=== PATIENT | female | born 1985 | race Two or more races ===

== ENCOUNTER 2025-02-28 13:44 | Emergency (ER) | payer MEDICAID, SELFPAY ==
[2025-02-28 13:59] VITALS: BP 125/82; PULSE 81; RESP 24; TEMP 36.9; O2SAT 99
--- NOTE | 2025-02-28 14:07 | XR_ITS ---
Examination: CT brain head without contrast. 2-D sagittal coronal reconstructions Date and time of exam:February 28, 2025 1557 hours INDICATIONS: Severe headache and dizziness today CTDI: vol (mGy):50 DLP: (mGycm):999 Technique: Multiple CT axial sections of the brain have been obtained, 5 mm slice thickness. Contrast has not been administered. 2-D sagittal, coronal reconstructions have been obtained Low dose protocols were performed. One or more of the following dose reduction techniques were used; automated exposure control, adjustment of the mA and/or KV according to patient size, use of iterative reconstruction technique. Findings: No significant ventricular enlargement. Intra-axial or extra-axial hemorrhage density is not seen. No mass effect or midline shift Basal cisterns are not remarkable. Fourth ventricle is midline. Cranial vault intact. Acute sphenoid sinusitis axial image 35 Impression: Negative for acute hemorrhage, mass effect or midline shift Advise clinical correlation follow-up accordingly
--- NOTE | 2025-02-28 14:07 | EKG_ITS ---
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
--- NOTE | 2025-02-28 14:07 | XR_ITS ---
Examination: AP chest single view TECHNIQUE: AP sitting portable chest single view Date and time: February 28, 2025 1421 hours INDICATIONS: Chest pain shortness of breath today. FINDINGS: Mild prominence of ventricle No pneumonia or pulmonary edema. The osseous structures are intact IMPRESSION: No active disease.
--- NOTE | 2025-02-28 14:08 | PD.EDRME ---
Rapid Medical Screening Exam E Arrival date/time: 02/28/25 13:44 39-year-old female presents emergency department for complaint of headache and, chest pain dizziness and weakness ongoing x 2 days Chief Complaint: Dizziness Vital signs: Vital Signs Temperature 98.4 F 02/28/25 13:59 Pulse Rate 81 02/28/25 13:59 Respiratory Rate 24 H 02/28/25 13:59 Blood Pressure 125/82 02/28/25 13:59 Pulse Oximetry (%) 99 02/28/25 13:59 Oxygen Delivery Method Room Air 02/28/25 13:59
[2025-02-28] MEDS: ACETAMINOPHEN 500 MG TABLET 1000 MG PO (14:14)
[2025-02-28 14:27] LABS: Basophils # (Auto) 0.1 Thou/mm3 (0.0-0.2); Basophils % (Auto) 1 % (0-2.5); Eosinophils # (Auto) 0.1 Thou/mm3 (0.0-0.5); Eosinophils % (Auto) 1 % (0-10); Hematocrit 35.6 % (36.0-46.0); Hemoglobin 11.0 g/dL (12.0-16.0); Immature Granulocytes Auto 0.02 Thou/mm3 (0.00-0.00); Lymphocytes # (Auto) 2.5 Thou/mm3 (1.0-4.8); Lymphocytes % (Auto) 29 % (10-50); Mean Corpuscular HGB Conc 30.9 g/dl (31.0-37.0); Mean Corpuscular Hemoglobin 21.5 pg (25.0-35.0); Mean Corpuscular Volume 70 fL (80-100); Monocytes # (Auto) 0.5 Thou/mm3 (0.0-0.8); Monocytes % (Auto) 6 % (0-12); Neutrophils # (Auto) 5.7 Thou/mm3 (1.8-7.7); Neutrophils % (Auto) 64 % (37-80); Nucleated Red Blood Cell # 0.00 Thou/mm3 (0.00-0.00); Nucleated Red Blood Cell % 0 /100 WBC (0); Platelet Count 308 Thou/mm3 (140-440); RDW Standard Deviation 50.0 fL (36.4-46.3); Red Blood Count 5.12 Miln/mm3 (4.00-5.20); White Blood Count 8.9 Thou/mm3 (3.6-11.0)
[2025-02-28 14:45] LABS: INR 1.0 (0.9-1.3); Partial Thromboplastin Time 25.2 Seconds (22.0-36.0); Prothrombin Time 11.1 Seconds (9.0-12.2)
[2025-02-28 14:46] LABS: B-Type Natriuretic Peptide < 20 pg/mL (0-100)
[2025-02-28 14:48] LABS: Alanine Aminotransferase 14 U/L (10-49); Albumin, Serum 4.3 gm/dL (3.5-5.0); Albumin/Globulin Ratio 1.7 (1.2-2.2); Alkaline Phosphatase 66 U/L (46-116); Anion Gap 12 (7-16); Aspartate Amino Transferase 20 U/L (0-34); BUN/Creatinine Ratio 30 Ratio (12-20); Bilirubin,Total 0.4 mg/dL (0.3-1.2); Blood Urea Nitrogen 15 mg/dL (9-23); Calcium 9.4 mg/dL (8.3-10.6); Calcium (Corrected) 9.4 mg/dL (8.5-10.1); Carbon Dioxide 19.6 mMol/L (20.0-31.0); Chloride 107 mMol/L (98-107); Creatinine (Component) 0.5 mg/dL (0.6-1.3); Globulin 2.6 gm/dL (2.3-3.5); Glucose 93 mg/dL (74-106); Magnesium 1.9 mg/dL (1.6-2.6); Osmolality,Calculated 278 (275-295); Potassium 3.6 mMol/L (3.4-5.1); Sodium 139 mMol/L (136-145); Total Protein 6.9 gm/dL (5.7-8.2); Troponin I < 0.020 ng/mL (0.0-0.045); eGFR > 60 See Note
[2025-02-28 18:49] LABS: Collection Type, Urine Clean Catch
[2025-02-28 18:52] VITALS: BP 124/82; PULSE 78; RESP 16; O2SAT 99
[2025-02-28 18:59] LABS: Bacteria,Urine Rare; Bilirubin,Urine Negative (Negative); Blood,Urine Negative (Negative); Clarity,Urine Clear (Clear/Hazy); Color,Urine Yellow (Lt Yel-Yel); Culture Indicated,Urine Not Indicated; Glucose, Urine 1+ (Negative); Ketones,Urine 1+ (Negative); Leukocyte Esterase,Urine Negative (Negative); Nitrite,Urine Negative (Negative); PH,Urine 6.5 (5.0-7.0); Protein,Urine Trace (Neg - Trace); RBC,Urine 8 /hpf (0-3); Specific Gravity,Urine 1.039 (1.001-1.035); Squamous Epithelial Cell,Urine 2 /hpf (0-5); Urobilinogen,Urine 2.0 mg/dL (0.0-1.0); WBC,Urine 3 /hpf (0-5)
--- NOTE | 2025-02-28 18:59 | PD.EDDIZZY ---
ED Dizzyness RME/HPI General Chief Complaint: Dizziness Stated Complaint: Dizzy, SOB, ROSS chest pain X 2 days Time Seen by Provider: 02/28/25 16:06 Arrival date/time: 02/28/25 13:44 RME / HPI RME / HPI Narrative: 39-year-old female presents emergency department for complaint of headache and, chest pain dizziness and weakness ongoing x 2 days. Severity of symptoms moderate. Denies any fever denies any cough denies any other complaints no medication was taken prior to arrival patient also denies any trauma to the head. Related Data Home Medications ?Medication ?Instructions ?Recorded ?Confirmed atorvastatin 20 mg tablet 40 mg PO QDAY 02/07/20 02/07/20 topiramate 25 mg tablet 25 mg PO QDAY 02/07/20 02/07/20 Previous Rx's ?Medication ?Instructions ?Recorded aspirin 81 mg tablet,delayed 81 mg PO QDAY #30 tabs 01/16/19 release ibuprofen 800 mg tablet 800 mg PO TID PRN pain #30 tabs 01/22/19 rizatriptan 10 mg tablet (Maxalt) 10 mg PO Q2H PRN migraine headache 02/28/25 #30 tabs Allergies Allergy/AdvReac Type Severity Reaction Status Date / Time No Known Drug Allergies Allergy Verified 02/28/25 13:50 Review of Systems Review of Systems Narrative Review of Systems: Review of system reviewed and within normal limits except mentioned in HPI ED Exam Narrative Physical exam: VITAL SIGNS: Reviewed. GENERAL APPEARANCE: Alert and interactive, follows commands, no acute distress, HEAD AND FACE: Non-traumatic. ENT: PERRL, pink conjunctivitis, eyelid no trauma, Mucous membrane moist. NECK: Supple, nontender, no nuchal rigidity. CHEST: No tenderness, no crepitus, no paradoxical movement, no retractions. LUNGS: Clear, well ventilated, symmetric, no rales, no wheezing, no ronchi, no stridor, good breath sounds bilaterally. HEART: Regular rate, regular rhythm, no murmur, no gallops. ABDOMEN: Soft, positive bowel sounds, nondistended, no guarding, nontender, no rebound, no masses, RECTAL: Deferred. GENITAL: Deferred. NEUROLOGICAL: Gross motor function intact sensory function intact, Appropriate for age. MUSCULOSKELETAL: low back nontender, full range of motion. EXTREMITIES: Nontender, full range of motion. SKIN: Color pink, dry, no rash, no lacerations, no abrasions, no contusions. LYMPHATICS: Deferred. Course Quality Measures none Orders Category Date Time Status EKG (ED ONLY) *Do not use* NOW Care 02/28/25 14:[address] head/brain wo con Stat Exams 02/28/25 14:07 Completed EKG (ED Only) Stat Exams 02/28/25 14:07 Draft XR chest 1V portable Stat Exams 02/28/25 14:07 Completed B-Type Natriuretic Peptide Stat Lab 02/28/25 14:15 Completed CBC Stat Lab 02/28/25 14:15 Completed Comprehensive Metabolic Panel Stat Lab 02/28/25 14:15 Completed Drug Screen,Urine Stat Lab 02/28/25 18:35 Received Magnesium Stat Lab 02/28/25 14:15 Completed Partial Thromboplastin Time Stat Lab 02/28/25 14:15 Completed Prothrombin Time with INR Stat Lab 02/28/25 14:15 Completed Troponin I Stat Lab 02/28/25 14:15 Completed Urinalysis, C/S if Indicated Stat Lab 02/28/25 18:35 Received ALPRazoLAM [Xanax] Med 02/28/25 14:07 Discontinued 0.25 mg PO X1 ONE Acetaminophen Tab [Tylenol ES Tab] Med 02/28/25 14:07 Discontinued 1,000 mg PO X1 ONE Vital Signs Vital signs: Vital Signs Temperature 98.4 F 02/28/25 13:59 Pulse Rate 81 02/28/25 13:59 Respiratory Rate 24 H 02/28/25 13:59 Blood Pressure 125/82 02/28/25 13:59 Pulse Oximetry (%) 99 02/28/25 13:59 Oxygen Delivery Method Room Air 02/28/25 13:59 Dizziness MDM Narrative MDM Narrative:: 39-year-old female presents emergency department for complaint of headache and, chest pain dizziness and weakness ongoing x 2 days. Severity of symptoms moderate. Denies any fever denies any cough denies any other complaints no medication was taken prior to arrival patient also denies any trauma to the head. CT scan of the head came back unremarkable. Patient laboratory workup also all came back unremarkable including normal troponin. EKG showed normal sinus rhythm, ventricular to 77 bpm, no ST segment elevation or depression noted. I personally reviewed and interpreted the x-ray of this patient. There is no acute abnormalities found, no infiltrates no pneumothorax no hemothorax normal chest x-ray. Review of other structures was without significant abnormal findings also. I additionally reviewed the radiologist report and agree with the interpretation. Prior to discharge patient is denying any complaints. Stable discharge home. Patient data External records reviewed:: None Clinical information provided by:: patient Social determinants that could affect healthcare access:: none Patient has the following chronic illnesses:: None How is presenting disease/condition affected by chronic disease/condition?: no chronic disease Evaluation data The following diagnostics were reviewed and interpreted by me:: lab results and radiology exam(s) Lab and/or radiology exams considered but not ordered:: None Interpretation Summary: See results MDM Medications / Prescriptions Medications or Prescriptions considered but not ordered:: None Medication administrations:: Medication Administration History Discontinued Medications Acetaminophen (Acetaminophen 500 Mg Tablet) 1,000 mg PO X1 ONE Stop: 02/28/25 14:08 Last Admin: 02/28/25 14:14 Dose: 1,000 mg Documented By: Alprazolam (Alprazolam 0.25 Mg Tablet) 0.25 mg PO X1 ONE Stop: 02/28/25 14:08 Last Admin: 02/28/25 14:14 Dose: 0.25 mg Documented By: Xanax, and Tylenol Consultations Consultation(s) initiated? (list below): No Diagnosis Dizziness Differential Diagnosis: other (Dizziness, headache, anxiety) Most likely diagnosis given after review of the tests above:: Headache Admission Indicated Admission indicated?: not indicated Admission Request Was there a request for admission?: No Disposition Plan Disposition Plan: Discharge Discharge Attestation Discharge Attestation: The patient was given an opportunity to ask questions and understood the discharge instructions. Discharge instructions specifically effects, indications for sooner follow up or return to the emergency department, and the expected course of current diagnosis. Patient condition: Stable Discharge Plan Plan Patient Disposition: HOME (Self Care) Discharge Disposition comment: Stable Prescriptions/Referrals Prescriptions/Med Rec: New rizatriptan [Maxalt] 10 mg tablet 10 mg PO Q2H PRN (Reason: migraine headache) Qty: 30 0RF Rx Instructions: do not exceed 3 doses per 24 hrs No Action atorvastatin 20 mg Tablet 40 mg PO QDAY topiramate 25 mg Tablet 25 mg PO QDAY aspirin 81 mg tablet,delayed release (DR/EC) 81 mg PO QDAY Qty: 30 0RF ibuprofen 800 mg tablet 800 mg PO TID PRN (Reason: pain) Qty: 30 0RF Referrals: Suresh Harrison MD [Primary Care Provider] - In 1 week Problem List Clinical Impression: Headache Patient/Caregiver Discharge Instructions Discharge Activity: activity as tolerated Education Materials: Self-Care for Headaches Additional Instructions: Thank you for the opportunity for serving you today. You are stable for discharged . You are advised to: Follow-up with your PCP in 1 to 2 days Return to ED for worsening of symptoms Increase oral fluids Take medication as prescribed Print Language: Japanese Stand Alone Forms: Mari Award Info., Patient Portal Info Letter
[2025-02-28 19:01] LABS: Amphetamine/Methamp Scrn,U Negative (Negative); Barbiturate Screen,Urine Negative (Negative); Benzodiazepines Screen,Urine Negative (Negative); Benzoylecgonine Screen, Ur Negative (Negative); Fentanyl Screen,Urine Negative (Negative); Opiate Screen,Urine Negative (Negative); THC Screen,Urine Negative (Negative)
== END 2025-02-28 19:17 | disposition home or self-care (01) ==
PROVIDERS: Nurse Practitioner Primary Care; Emergency Provider Family Medicine; PCP Family Medicine
DX: R51.9 Headache, unspecified (principal); R07.9 Chest pain, unspecified; R06.02 Shortness of breath; R42 Dizziness and giddiness; R53.1 Weakness
CPT/HCPCS: 36415; 70450; 71045; 80053; 80307; 81001; 83735; 83880; 84484; 85025; 85610; 85730; 93005; 99283; A9270